=== PATIENT | male | born 1965 | race Caucasian/White ===

== ENCOUNTER 2021-08-26 01:13 | Inpatient (IN) | payer OTHER ==
[~2021-08-26] VITALS: Ht 182.9 cm; Wt 93.2 kg
[2021-08-26 03:16] LABS: BASO % 0.3 % (0.0-1.0); EOS # 0.2 10^3/uL (0.0-0.5); HEMATOCRIT 50.4 % (42.0-52.0); HEMOGLOBIN 16.3 g/dl (13.5-17.5); LYMPH # 1.3 10^3/uL (1.5-5.0); LYMPH % 10.7 % (24.0-44.0); MEAN CORPUSCULAR HEMOGLOBIN 28.5 pg (27.0-33.0); MEAN CORPUSCULAR HGB CONC 32.3 g/dl (32.0-36.5); MEAN CORPUSCULAR VOLUME 88.1 fl (80.0-96.0); MONO % 8.7 % (2.0-8.0); NEUTROPHILS # 9.2 10^3/uL (1.5-8.5); PLATELET COUNT, AUTOMATED 214 10^3/uL (150-450); RED BLOOD COUNT 5.72 10^6/uL (4.30-6.10); WHITE BLOOD COUNT 11.8 10^3/uL (4.0-10.0)
[2021-08-26 03:42] LABS: ALBUMIN 4.3 GM/DL (3.2-5.2); ALT/SGPT 25 U/L (12-78); BILIRUBIN,TOTAL 1.1 MG/DL (0.2-1.0); BLOOD UREA NITROGEN 13 MG/DL (7-18); CALCIUM LEVEL 9.1 MG/DL (8.5-10.1); CARBON DIOXIDE LEVEL 29 MEQ/L (21-32); CHLORIDE LEVEL 105 MEQ/L (98-107); CREATININE FOR GFR 1.02 MG/DL (0.70-1.30); GLOMERULAR FILTRATION RATE > 60.0 (>56); GLUCOSE, FASTING 124 MG/DL (70-100); MAGNESIUM LEVEL 2.6 MG/DL (1.8-2.4); POTASSIUM SERUM 4.3 MEQ/L (3.5-5.1); SODIUM LEVEL 140 MEQ/L (136-145); TOTAL PROTEIN 7.5 GM/DL (6.4-8.2)
[2021-08-26] MEDS ORDERED: ISOVUE-370 76% 100ML VIAL As Ordered ONE (05:04)
[2021-08-26] MEDS ORDERED: ERTAPENEM SODIUM 1 GM in NS MINI-BAG PLUS 50 ML IV ONE (05:40)
[2021-08-26] MEDS ORDERED: ATOR1TAB21 PO (05:46)
[2021-08-26] MEDS ORDERED: HOME MED LIST COMPLETE! XX SCH (05:50)
[2021-08-26] MEDS ORDERED: MORPHINE 2 MG/ML 1ML VIAL (J2270) IV ONE (05:50)
[2021-08-26] MEDS ORDERED: PERCOCET 5MG/325MG TAB PO PRN ×2 (07:20)
[2021-08-26] MEDS ORDERED: GLUCOSE 4GM CHEW TABLET PO PRN (07:20)
[2021-08-26] MEDS ORDERED: DEXTROSE 50% 50 ML SYRINGE IV PRN (07:20)
[2021-08-26] MEDS ORDERED: GLUCAGON INJ 1MG VIAL SC PRN (07:20)
[2021-08-26] MEDS ORDERED: NS 1,000 ML IV ONE (08:00)
[2021-08-26] MEDS ORDERED: HYDROMORPHONE HCL 0.5 MG/ 0.5 ML SYRINGE (J1170 PER 1) IV ONE (08:00)
[2021-08-26 10:00] VITALS: BP 149/86
[2021-08-26] MEDS: KETOROLAC 30 MG/ML 1ML VIAL IV SCH ×3 (10:18→20:18)
[2021-08-26] MEDS: D5W/0.45% SODIUM CHLORIDE 1,000 ML IV SCH ×2 (11:39→20:21)
[2021-08-26 14:00] VITALS: BP 145/87
[2021-08-26] MEDS: MEROPENEM INJ 1 GM in IV 1 EA IV SCH (16:00)
[2021-08-26 22:00] VITALS: BP 130/83
[2021-08-27] MEDS: MEROPENEM INJ 1 GM in IV 1 EA IV SCH ×3 (00:20→15:43)
[2021-08-27] MEDS: KETOROLAC 30 MG/ML 1ML VIAL IV SCH ×6 (02:31→20:20)
[2021-08-27] MEDS: D5W/0.45% SODIUM CHLORIDE 1,000 ML IV SCH (05:55)
[2021-08-27 06:00] VITALS: BP 126/77
[2021-08-27 06:28] LABS: BASO % 0.3 % (0.0-1.0); EOS # 0.3 10^3/uL (0.0-0.5); EOS % 5.2 % (0.0-3.0); LYMPH % 15.3 % (24.0-44.0); MEAN CORPUSCULAR HEMOGLOBIN 28.7 pg (27.0-33.0); MEAN CORPUSCULAR HGB CONC 32.4 g/dl (32.0-36.5); MEAN CORPUSCULAR VOLUME 88.4 fl (80.0-96.0); MONO # 0.5 10^3/uL (0.0-0.8); MONO % 7.9 % (2.0-8.0); NEUTROPHILS # 4.5 10^3/uL (1.5-8.5); NEUTROPHILS % 70.8 % (36.0-66.0); PLATELET COUNT, AUTOMATED 176 10^3/uL (150-450); RED BLOOD COUNT 4.64 10^6/uL (4.30-6.10); WHITE BLOOD COUNT 6.3 10^3/uL (4.0-10.0)
[2021-08-27 06:30] LABS: HEMOGLOBIN 13.3 g/dl (13.5-17.5)
[2021-08-27 06:45] LABS: BLOOD UREA NITROGEN 14 MG/DL (7-18); CALCIUM LEVEL 8.1 MG/DL (8.5-10.1); CARBON DIOXIDE LEVEL 28 MEQ/L (21-32); CHLORIDE LEVEL 109 MEQ/L (98-107); CREATININE FOR GFR 0.83 MG/DL (0.70-1.30); GLOMERULAR FILTRATION RATE > 60.0 (>56); GLUCOSE, FASTING 118 MG/DL (70-100); POTASSIUM SERUM 4.1 MEQ/L (3.5-5.1); SODIUM LEVEL 141 MEQ/L (136-145)
[2021-08-27] MEDS ORDERED: FLUBLOK(EGG FREE)(QUAD)INFLUENZA VACC 0.5ML SYRINGE 18YRS & OLDER IM ONE (09:00)
[2021-08-27] MEDS: NS 1,000 ML IV SCH ×2 (09:02→20:19)
[2021-08-27 14:00] VITALS: BP 131/81
[2021-08-27 20:24] VITALS: BP 126/82
[2021-08-28] MEDS: MEROPENEM INJ 1 GM in IV 1 EA IV SCH ×2 (00:17→08:45)
[2021-08-28] MEDS: KETOROLAC 30 MG/ML 1ML VIAL IV SCH ×2 (02:15→08:43)
[2021-08-28 06:16] LABS: BASO % 0.6 % (0.0-1.0); EOS # 0.4 10^3/uL (0.0-0.5); EOS % 8.2 % (0.0-3.0); HEMATOCRIT 36.8 % (42.0-52.0); HEMOGLOBIN 12.2 g/dl (13.5-17.5); LYMPH # 1.3 10^3/uL (1.5-5.0); MEAN CORPUSCULAR HEMOGLOBIN 29.1 pg (27.0-33.0); MEAN CORPUSCULAR HGB CONC 33.2 g/dl (32.0-36.5); MEAN CORPUSCULAR VOLUME 87.8 fl (80.0-96.0); MONO # 0.4 10^3/uL (0.0-0.8); MONO % 8.2 % (2.0-8.0); NEUTROPHILS # 2.8 10^3/uL (1.5-8.5); NEUTROPHILS % 56.8 % (36.0-66.0); PLATELET COUNT, AUTOMATED 162 10^3/uL (150-450); RED BLOOD COUNT 4.19 10^6/uL (4.30-6.10)
[2021-08-28] MEDS: NS 1,000 ML IV SCH (06:35)
[2021-08-28 06:44] LABS: BLOOD UREA NITROGEN 10 MG/DL (7-18); CALCIUM LEVEL 7.7 MG/DL (8.5-10.1); CARBON DIOXIDE LEVEL 28 MEQ/L (21-32); CHLORIDE LEVEL 113 MEQ/L (98-107); CREATININE FOR GFR 0.83 MG/DL (0.70-1.30); GLOMERULAR FILTRATION RATE > 60.0 (>56); GLUCOSE, FASTING 91 MG/DL (70-100); POTASSIUM SERUM 4.3 MEQ/L (3.5-5.1); SODIUM LEVEL 144 MEQ/L (136-145)
[2021-08-28 07:15] VITALS: BP 124/83
[2021-08-28] MEDS ORDERED: METR-265 PO (08:12)
[2021-08-28] MEDS ORDERED: BACITAB PO (08:12)
[2021-08-28] MEDS ORDERED: CIPR-249 PO (08:12)
== END 2021-08-28 13:28 | disposition home or self-care (01) | DRG 392 ==
LOC: M ED 01:13 → M ED INP 07:14 → ENRESERV 08:58 → M MSPAV 09:53
PROVIDERS: ADMIT General Practice; ATTEND General Practice
DX: K57.32 Diverticulitis of large intestine without perforation or abscess without bleeding (principal); Z88.0 Allergy status to penicillin; M54.9 Dorsalgia, unspecified; Z98.1 Arthrodesis status; E78.5 Hyperlipidemia, unspecified; Z20.822 Contact with and (suspected) exposure to COVID-19